=== PATIENT | male | born 1950 | race Caucasian/White ===

== ENCOUNTER 2017-09-29 15:45 | Inpatient (IN) | payer MEDICARE, OTHER ==
[~2017-09-29] VITALS: Ht 182.9 cm; Wt 84.1 kg
[2017-09-29] MEDS ORDERED: IV NORMAL SALINE 500 ML BAG IV ONE (16:00)
[2017-09-29] MEDS ORDERED: ALBUTEROL SULFATE 2.5 MG/3 ML NEBU NEB ONE ×2 (16:00→19:30)
[2017-09-29] MEDS ORDERED: RIVA15TA2 PO (16:08)
[2017-09-29] MEDS ORDERED: LAMO100T PO (16:08)
[2017-09-29] MEDS ORDERED: RISP0.5T20 PO (16:08)
[2017-09-29] MEDS ORDERED: SERTRALINE (16:08)
[2017-09-29] MEDS ORDERED: LORAZEPAM (16:08)
[2017-09-29] MEDS ORDERED: DIVA500T7 PO (16:08)
[2017-09-29] MEDS ORDERED: GENTAMICIN SULFATE 20 MG/2 ML VIAL IV ONE (16:15)
[2017-09-29] MEDS ORDERED: VANCOMYCIN IV 1,000 MG in IV DEXTROSE 5% 250 ML IV ONE (16:15)
[2017-09-29] MEDS ORDERED: ALBUTEROL SULFATE 2.5 MG/3 ML NEBU ONE (16:29)
[2017-09-29 16:46] LABS: BASOPHILS % (AUTO) 0.3 % (0.0-2.0); EOSINOPHILS % (AUTO) 0.2 % (0.0-7.0); HEMATOCRIT 33.4 % (36.7-47.1); LYMPHOCYTES # (AUTO) 0.9 K/uL (20.0-40.0); LYMPHOCYTES % (AUTO) 5.8 % (20.5-51.5); MEAN CORPUSCULAR HEMOGLOBIN 30.2 uug (23.8-33.4); MEAN CORPUSCULAR HGB CONC 33 g/dL (32.5-36.3); MEAN CORPUSCULAR VOLUME 91.5 fL (73.0-96.2); MONOCYTES # (AUTO) 1.1 K/uL (2.0-10.0); MONOCYTES % (AUTO) 7.4 % (0.0-11.0); NEUTROPHILS # (AUTO) 12.7 K/uL (1.8-8.9); NEUTROPHILS % (AUTO) 86.3 % (38.5-71.5); PLATELET COUNT (AUTO) 305 K/uL (152-348); RED BLOOD CELL COUNT(AUTO) 3.66 MIL/uL (4.06-5.63); WHITE BLOOD COUNT (AUTO) 14.7 K/uL (3.6-10.2)
[2017-09-29 16:59] LABS: CREATININE 0.9 mg/dL (0.6-1.3); POTASSIUM 4.9 mmol/L (3.5-5.1)
[2017-09-29] MEDS ORDERED: OLANZAPINE 10 MG VIAL IM ONE ×2 (17:00→17:20)
[2017-09-29 17:05] LABS: BILIRUBIN,DIRECT 0.1 mg/dL (0.0-0.2); BILIRUBIN,TOTAL 0.2 mg/dL (0.2-1.0); TOTAL PROTEIN, SERUM 8.1 g/dL (6.4-8.2)
--- NOTE | 2017-09-29 17:26 | NUR ---
Pt presents to ED via ambulance from [facility] living on a hospice care. Pt presents with a chief complaint of upper and lower bilateral extremities edema. Per hospice staff, pt has not been compliant with care. Noted bilateral lower extremity ulcers. 3+ pitting edema to BLE. pt is tachypneic with shallow breathing. +rhonchi and wheezes audible upon auscultation. Pt is anxious. tolerated meds administered. will continue to monitor.
[2017-09-29] MEDS ORDERED: GENTAMICIN SULFATE INJ 80 MG in IV DEXTROSE 5% 50 ML IV ONE (17:30)
[2017-09-29] MEDS ORDERED: LORAZEPAM 2 MG/1 ML VIAL IV ONE (17:30)
[2017-09-29] MEDS ORDERED: LORAZEPAM 2 MG/1 ML VIAL ONE (17:31)
[2017-09-29 17:32] LABS: BAND % (MANUAL) 2 % (0-10); EOSINOPHILS % (MANUAL) 1 % (0-8); LYMPHOCYTES % (MANUAL) 5 % (20-40); MONOCYTES % (MANUAL) 6 % (2-10); NEUTROPHILS % (MANUAL) 86 % (42-75)
--- NOTE | 2017-09-29 18:32 | NUR ---
Pt is asleep. easily arousable. breathing is labored and even. pt is tachypneic. No wheezes audible. tolerating O2 via NC. Tolerated Gentamicin with no drug reaction. Initiated Vanco. Johnny-fib on registered nurse cardiac telemetry with irregular rate. Pending a bed assignment. will continue to monitor.
--- NOTE | 2017-09-29 19:25 | NUR ---
PATIENT WAS RECEIVED O2 SAT 88% ON 3L NC, HR 136. DR CHERRY AWARE PATIENT PLACE IN [place] POSITION ORAL SUCTION DONE PLACED ON REGULAR MASK 5L. WILL CONTINUE TO MONITOR.
[2017-09-29] MEDS ORDERED: methylPREDNISolone SOD SUCC 125 MG/2 ML VIAL IV ONE (19:30)
[2017-09-29] MEDS ORDERED: IPRATROPIUM BROMIDE 0.5 MG/2.5 ML NEBU NEB ONE (19:30)
[2017-09-29] MEDS ORDERED: AMIODARONE HCL IV 900 MG in IV DEXTROSE 5% 482 ML IV PRN (19:30)
[2017-09-29] MEDS ORDERED: AMIODARONE HCL IV 150 MG in IV DEXTROSE 5% 100 ML IV ONE (19:30)
[2017-09-29] MEDS ORDERED: ALBUTEROL SULFATE 2.5 MG/ 0.5 ML NEBU ONE (19:45)
[2017-09-29] MEDS ORDERED: IPRATROPIUM BROMIDE 0.5 MG/2.5 ML NEBU ONE (19:45)
[2017-09-29] MEDS ORDERED: methylPREDNISolone SOD SUCC 125 MG/2 ML VIAL ONE (19:52)
--- NOTE | 2017-09-29 20:05 | NUR ---
DR BRANDON BRENNAN CALLED PATIENT WILL BE ADMIT TO CCU.
--- NOTE | 2017-09-29 20:27 | NUR ---
CALLED ICU NURSE FOR REPORT WILL CALL BACK
--- NOTE | 2017-09-29 20:35 | NUR ---
Pt. admitted to CCU , under care of Garett Medina Belongs List completed
--- NOTE | 2017-09-29 21:10 | NUR ---
PATIENT TAKEN TO CCU 3 WITHOUT ANY INCIDENT WITH RN SLOTTER OPERATOR HELPER SACHI.
[2017-09-29 21:25] VITALS: BP 125/71
--- NOTE | 2017-09-29 21:30 | NUR ---
ADMITTED PT. ALERT W/ PERIODS OF CONFUSION & DISORIENTATION, AGITATED & UNCOOPERATIVE. ON O2 @ 6L SIMPLE MASK W/ O2 SAT OF 93%. ON AMIODARONE DRIP @ 1MG/HR ON R FA IV SITE. HEP LOCK INTACT & PATENT ON LFA. PT. INCONTINENT OF URINE, CLEANED & KEPT DRY. KEPT HOB ELEVATED.
--- NOTE | 2017-09-29 21:45 | NUR ---
DR. BRENNAN CAME IN & SEEN PT W/ ORDERS. CHANGED O2 TO VENTI MASK 30% FIO2 W/ O2 SAT OF 94%.
[2017-09-29 22:00] VITALS: BP 116/65
[2017-09-29] MEDS ORDERED: ONDANSETRON 4 MG/2 ML VIAL IV PRN (22:00)
[2017-09-29] MEDS: ACETAMINOPHEN 325 MG TABLET PO PRN (22:26)
[2017-09-29 22:30] VITALS: BP 113/61
[2017-09-29] MEDS ORDERED: ACETAMINOPHEN 325 MG TABLET ONE (22:38)
[2017-09-29 22:39] LABS: MAGNESIUM 1.7 mg/dL (1.8-2.4)
[2017-09-29 23:00] VITALS: BP 120/71
[2017-09-29 23:30] VITALS: BP 121/77
[2017-09-30] VITALS (17 sets, daily range): BP systolic 98–132; BP diastolic 47–97
--- NOTE | 2017-09-30 | NUR ---
AFEBRILE. BP STABLE. PT IS AWAKE & CONFUSED.
[2017-09-30] MEDS: ACETAMINOPHEN 325 MG TABLET PO PRN ×3 (02:54→17:11)
[2017-09-30] MEDS ORDERED: ACETAMINOPHEN 325 MG TABLET ONE (03:11)
--- NOTE | 2017-09-30 04:00 | NUR ---
AM CARE DONE. INCONT. OF URINE. REPOSITIONED SELF FOR COMFORTS. KEPT HOB ELEVATED. C-SCOPE AFIB CONTROLLED.
--- NOTE | 2017-09-30 06:00 | NUR ---
CLEANED AGAIN , HAD MOD. SOFT BROWNISH STOOL. REPOSITIONED W/ HOB ELEVATED.
[2017-09-30] MEDS ORDERED: Z GUARD REMEDY PASTE 57 GM TUBE TOP PRN (06:15)
[2017-09-30] MEDS: PANTOPRAZOLE SODIUM 40 MG TABLET.DR PO SCH (08:09)
[2017-09-30] MEDS: DIVALPROEX 500 MG TABLET.DR PO SCH ×2 (08:09→16:00)
[2017-09-30] MEDS: risperiDONE 0.5 MG TABLET PO SCH ×2 (08:17→16:00)
[2017-09-30] MEDS ORDERED: FUROSEMIDE 40 MG/4 ML VIAL IV SCH (09:00)
[2017-09-30] MEDS ORDERED: SULFAMETHE/TRIMETH 20 ML LIQUID UDC PO SCH (09:15)
[2017-09-30] MEDS: SULFAMETH/TRIMETH 800/160 MG TABLET PO SCH ×2 (09:51→20:50)
--- NOTE | 2017-09-30 09:58 | NUR ---
PER DR BRANDON BRENNAN OK TO TO TRANSFER TO [facility], AND OK TO PUT IN ORDER ATIVAN INJ 1MG Q6H PRN
[2017-09-30] MEDS: LAMOTRIGINE 100 MG TABLET PO SCH ×2 (10:41→16:00)
--- NOTE | 2017-09-30 11:45 | NUR ---
DR MAN IS HERE TO ASSESS THE PT, FULL REPORT IS GIVEN. PER DR. MAN OK TO TRANSFER TO TELE. WILL ADVICE DR BRENNAN
[2017-09-30] MEDS: DILTIAZEM HCL CD 120 MG CAP.SR.24H PO SCH (12:24)
[2017-09-30] MEDS: LORAZEPAM 2 MG/1 ML VIAL IV PRN ×2 (13:39→20:51)
--- NOTE | 2017-09-30 16:00 | NUR ---
PT RECEIVED FROM [facility] IN STABLE CONDITION.
[2017-09-30] MEDS: FUROSEMIDE 40 MG/4 ML VIAL IV SCH (16:09)
[2017-09-30] MEDS: RIVAROXABAN 10 MG TABLET PO SCH (17:26)
[2017-09-30] MEDS ORDERED: RIVAROXABAN 15 MG TABLET PO SCH (18:00)
[2017-09-30] MEDS: ALBUTEROL SULFATE 1.25 MG/3 ML NEBU NEB PRN (21:18)
--- NOTE | 2017-09-30 22:00 | NUR ---
nsg: cleansed left great toe wound, applied hydrogel, covered with 4x4 and kerlix. wound care consult ordered.
[2017-10-01 00:28] VITALS: BP 99/63
[2017-10-01] MEDS: ALBUTEROL SULFATE 1.25 MG/3 ML NEBU NEB PRN ×3 (02:21→22:59)
[2017-10-01] MEDS: LORAZEPAM 2 MG/1 ML VIAL IV PRN ×3 (02:23→22:40)
[2017-10-01 04:47] VITALS: BP 98/68
--- NOTE | 2017-10-01 06:45 | NUR ---
nsg: no acute distress noted. all needs attended. tele, afib controlled.
[2017-10-01 06:53] LABS: BASOPHILS % (AUTO) 0.2 % (0.0-2.0); EOSINOPHILS % (AUTO) 0.2 % (0.0-7.0); HEMOGLOBIN 9.9 g/dL (12.5-16.3); LYMPHOCYTES # (AUTO) 0.9 K/uL (20.0-40.0); LYMPHOCYTES % (AUTO) 7.9 % (20.5-51.5); MEAN CORPUSCULAR HEMOGLOBIN 30.5 uug (23.8-33.4); MEAN CORPUSCULAR HGB CONC 34 g/dL (32.5-36.3); MEAN CORPUSCULAR VOLUME 90.8 fL (73.0-96.2); MONOCYTES # (AUTO) 0.8 K/uL (2.0-10.0); MONOCYTES % (AUTO) 6.9 % (0.0-11.0); NEUTROPHILS # (AUTO) 9.3 K/uL (1.8-8.9); NEUTROPHILS % (AUTO) 84.8 % (38.5-71.5); PLATELET COUNT (AUTO) 245 K/uL (152-348); RED BLOOD CELL COUNT(AUTO) 3.26 MIL/uL (4.06-5.63)
[2017-10-01] MEDS: HYDROCODONE/APAP 5-325MG TABLET PO PRN ×2 (06:53→22:39)
[2017-10-01 06:58] LABS: CREATININE 0.7 mg/dL (0.6-1.3); MAGNESIUM 1.8 mg/dL (1.8-2.4); PHOSPHOROUS 3.3 mg/dL (2.5-4.9); POTASSIUM 4.2 mmol/L (3.5-5.1)
[2017-10-01 07:04] LABS: HEMATOCRIT 29.6 % (36.7-47.1); THYROID STIMULATING HORMONE 3.776 mIU/mL (0.358-3.740)
[2017-10-01] MEDS ORDERED: HYDROCODONE/APAP 5-325MG TABLET ONE (07:08)
[2017-10-01] MEDS: FUROSEMIDE 40 MG/4 ML VIAL IV SCH (09:00)
[2017-10-01] MEDS: DIVALPROEX 500 MG TABLET.DR PO SCH ×2 (09:49→18:07)
[2017-10-01] MEDS: SULFAMETH/TRIMETH 800/160 MG TABLET PO SCH ×2 (09:49→21:55)
[2017-10-01] MEDS: LAMOTRIGINE 100 MG TABLET PO SCH ×2 (09:49→18:07)
[2017-10-01] MEDS: DILTIAZEM HCL CD 120 MG CAP.SR.24H PO SCH (09:49)
[2017-10-01] MEDS: risperiDONE 0.5 MG TABLET PO SCH ×2 (09:50→18:07)
[2017-10-01] MEDS: PANTOPRAZOLE SODIUM 40 MG TABLET.DR PO SCH (09:50)
[2017-10-01] MEDS: ACETAMINOPHEN 325 MG TABLET PO PRN (09:56)
[2017-10-01 11:29] VITALS: BP 127/69
[2017-10-01] MEDS ORDERED: SILVER SULFADIAZINE 1% CREAM 25 GM TUBE TP ONE (13:00)
--- NOTE | 2017-10-01 13:02 | NUR ---
WOUND CARE CONSULT: PT REFUSED SKIN ASSESSMENT AND ASKING FOR CIGARETTES. PT NOTED TO HAVE ESCHAR TO RT HAND, NO DRAINAGE OR TENDERNESS NOTED. WOUNDS NOTED WITH REDNESS TO LOWER EXTREMITIES. RECOMMEND DPM CONSULT. ALL SKIN AND WOUND RECOMMENDATIONS DISCUSSED WITH NURSING STAFF. CURRENT RASHAAD SCORE IS 16. WILL SEE PRFrantz CUELLO IN AGREEMENT WITH PLAN OF CARE.
[2017-10-01] MEDS: ACETYLCYSTEINE 10% 4ML VIAL NEB SCH ×3 (14:27→22:59)
[2017-10-01 15:27] VITALS: BP 100/73
[2017-10-01] MEDS ORDERED: FUROSEMIDE 40 MG/4 ML VIAL IV SCH (17:00)
[2017-10-01] MEDS: SILVER SULFADIAZINE 1% CREAM 50 GM TP SCH (18:00)
[2017-10-01] MEDS: FUROSEMIDE 20 MG/2 ML VIAL IV SCH (18:07)
[2017-10-01] MEDS: RIVAROXABAN 10 MG TABLET PO SCH (18:08)
--- NOTE | 2017-10-01 19:54 | NUR ---
RECEIVED SHIFT REPORT FROM DAY SHIFT NURSE. PATIENT IS IN STABLE CONDITION, NO S/S OF DISTRESS. APPEARS TO BE NON-COOPERATIVE. BED IN LOCKED/LOW POSITION, WITH SIDE RAILS UP X2, BED ALARM ON, CALL LIGHT WITHIN REACH OF PATIENT.
[2017-10-01 20:51] VITALS: BP 116/60
[2017-10-02] MEDS: ACETAMINOPHEN 325 MG TABLET PO PRN (00:19)
[2017-10-02 04:00] VITALS: BP 121/59
--- NOTE | 2017-10-02 06:48 | NUR ---
DRESSINGS CHANGED, PATIENT IN STABLE CONDITION, NO S/S OF DISTRESS.
[2017-10-02 06:57] LABS: BASOPHILS % (AUTO) 0.2 % (0.0-2.0); EOSINOPHILS % (AUTO) 0.2 % (0.0-7.0); HEMOGLOBIN 9.7 g/dL (12.5-16.3); LYMPHOCYTES # (AUTO) 1.2 K/uL (20.0-40.0); LYMPHOCYTES % (AUTO) 11.7 % (20.5-51.5); MEAN CORPUSCULAR HEMOGLOBIN 30.6 uug (23.8-33.4); MEAN CORPUSCULAR HGB CONC 34 g/dL (32.5-36.3); MEAN CORPUSCULAR VOLUME 91.1 fL (73.0-96.2); MONOCYTES # (AUTO) 0.9 K/uL (2.0-10.0); MONOCYTES % (AUTO) 8.8 % (0.0-11.0); NEUTROPHILS # (AUTO) 8.2 K/uL (1.8-8.9); NEUTROPHILS % (AUTO) 79.1 % (38.5-71.5); PLATELET COUNT (AUTO) 264 K/uL (152-348); RED BLOOD CELL COUNT(AUTO) 3.19 MIL/uL (4.06-5.63); WHITE BLOOD COUNT (AUTO) 10.3 K/uL (3.6-10.2)
[2017-10-02 07:16] LABS: BILIRUBIN,TOTAL 0.2 mg/dL (0.2-1.0); CREATININE 0.8 mg/dL (0.6-1.3); MAGNESIUM 1.7 mg/dL (1.8-2.4); PHOSPHOROUS 4.1 mg/dL (2.5-4.9); POTASSIUM 4.5 mmol/L (3.5-5.1); TOTAL PROTEIN, SERUM 6.7 g/dL (6.4-8.2)
[2017-10-02] MEDS: ALBUTEROL SULFATE 1.25 MG/3 ML NEBU NEB PRN ×3 (07:36→15:26)
[2017-10-02] MEDS: ACETYLCYSTEINE 10% 4ML VIAL NEB SCH ×2 (07:36→15:26)
[2017-10-02] MEDS: DIVALPROEX 500 MG TABLET.DR PO SCH ×2 (08:06→16:49)
[2017-10-02] MEDS: SULFAMETH/TRIMETH 800/160 MG TABLET PO SCH ×2 (08:06→20:17)
[2017-10-02] MEDS: DILTIAZEM HCL CD 120 MG CAP.SR.24H PO SCH (08:07)
[2017-10-02] MEDS: PANTOPRAZOLE SODIUM 40 MG TABLET.DR PO SCH (08:07)
[2017-10-02] MEDS: risperiDONE 0.5 MG TABLET PO SCH ×2 (08:07→16:49)
[2017-10-02] MEDS: LAMOTRIGINE 100 MG TABLET PO SCH ×2 (08:07→16:49)
[2017-10-02] MEDS: FUROSEMIDE 20 MG/2 ML VIAL IV SCH (08:08)
[2017-10-02] MEDS: SILVER SULFADIAZINE 1% CREAM 50 GM TP SCH (08:09)
[2017-10-02] MEDS: NICOTINE 21 MG/24HR PATCH TD SCH (08:09)
[2017-10-02] MEDS: MAGNESIUM SULFATE/D5W 100 ML IV SCH ×3 (10:21→12:58)
[2017-10-02] MEDS ORDERED: MAGNESIUM SULFATE/D5W 100 ML IV SCH (11:30)
[2017-10-02 11:37] VITALS: BP 96/55
[2017-10-02] MEDS: CLOTRIMAZOLE 1% CREAM 30 GM TUBE TOP SCH ×2 (11:41→16:49)
[2017-10-02] MEDS: CADEXOMER IODINE 40 GM TUBE TOP SCH (11:41)
[2017-10-02 16:01] VITALS: BP 92/47
[2017-10-02] MEDS: FUROSEMIDE 20 MG TABLET PO SCH (16:49)
[2017-10-02] MEDS: RIVAROXABAN 10 MG TABLET PO SCH (17:32)
--- NOTE | 2017-10-02 18:29 | NUR ---
DRESSING CHANGE ON BILATERAL FEET, NO SIGNS OF DISTRESS, COMPLIANT WITH MEDICATION, CALM, COOPERATIVE, AND ALLOWS CARE.
--- NOTE | 2017-10-02 19:45 | NUR ---
RECEIVED SHIFT REPORT FROM DAY SHIFT NURSE. PATIENT RESTING IN BED, NO S/S OF DISTRESS, STABLE CONDITION. CONTINUOUSLY USES CALL LIGHT TO CALL FOR FOOD. UNCOOPERATIVE, AND CONTINUOUSLY YELLING. WILL REORIENT PATIENT. WILL PROVIDE PAIN MANAGEMENT AND WOUND CARE FOR PATIENT. SAFETY/COMFORT WILL PROVIDED. BED IN LOCKED/LOW POSITION, WITH SIDE RAILS UP X2, BED ALARM ON, CALL LIGHT WITHIN REACH.
[2017-10-02 20:00] VITALS: BP 93/49
[2017-10-02] MEDS: HYDROCODONE/APAP 5-325MG TABLET PO PRN (20:17)
[2017-10-02] MEDS: LORAZEPAM 2 MG/1 ML VIAL IV PRN (22:41)
[2017-10-03] MEDS: ALBUTEROL SULFATE 1.25 MG/3 ML NEBU NEB PRN (00:07)
[2017-10-03] MEDS: ACETYLCYSTEINE 10% 4ML VIAL NEB SCH (00:09)
[2017-10-03 06:28] VITALS: BP 122/72
--- NOTE | 2017-10-03 06:39 | NUR ---
PATIENT SLEPT INTERRMITTENTLY THROUGH THE NIGHT. PATIENT WAS VERY UNCOOPERATIVE IN BEGINNING OF SHIFT,CONTINUOUSLY ASKING TO SMOKE A CIGARETTE, ASKING FOR FOOD EVEN WHEN FOOD WAS PROVIDED FOR PATIENT. PATIENT CLEANED, CHANGED, WOUND CARE PROVIDED PER MD ORDERS. PATIENT IN STABLE CONDITION, NO S/S OF DISTRESS, VSS. RESPIRATORY THERAPY PROVIDED BREATHING TREATMENT. BED IN LOCKED/LOW POSITION WITH SIDE RAILS UP X2, BED ALARM ON, CALL LIGHT WITHIN REACH. SAFETY/COMFORT PROVIDED FOR PATIENT THROUGHOUT SHIFT.
[2017-10-03 07:18] LABS: BASOPHILS % (AUTO) 0.3 % (0.0-2.0); EOSINOPHILS % (AUTO) 0.6 % (0.0-7.0); HEMATOCRIT 28.3 % (36.7-47.1); HEMOGLOBIN 9.4 g/dL (12.5-16.3); LYMPHOCYTES # (AUTO) 0.8 K/uL (20.0-40.0); LYMPHOCYTES % (AUTO) 10.9 % (20.5-51.5); MEAN CORPUSCULAR HEMOGLOBIN 30.3 uug (23.8-33.4); MEAN CORPUSCULAR HGB CONC 33 g/dL (32.5-36.3); MEAN CORPUSCULAR VOLUME 91.4 fL (73.0-96.2); MONOCYTES # (AUTO) 0.7 K/uL (2.0-10.0); MONOCYTES % (AUTO) 8.5 % (0.0-11.0); NEUTROPHILS # (AUTO) 6.2 K/uL (1.8-8.9); NEUTROPHILS % (AUTO) 79.7 % (38.5-71.5); PLATELET COUNT (AUTO) 257 K/uL (152-348); RED BLOOD CELL COUNT(AUTO) 3.09 MIL/uL (4.06-5.63)
[2017-10-03 07:30] LABS: CREATININE 0.8 mg/dL (0.6-1.3); PHOSPHOROUS 3.5 mg/dL (2.5-4.9)
[2017-10-03 07:30] LABS: WHITE BLOOD COUNT (AUTO) 7.7 K/uL (3.6-10.2)
[2017-10-03] MEDS: FUROSEMIDE 20 MG TABLET PO SCH (08:27)
[2017-10-03] MEDS: LAMOTRIGINE 100 MG TABLET PO SCH (08:27)
[2017-10-03] MEDS: risperiDONE 0.5 MG TABLET PO SCH (08:27)
[2017-10-03] MEDS: SULFAMETH/TRIMETH 800/160 MG TABLET PO SCH (08:27)
[2017-10-03] MEDS: DILTIAZEM HCL CD 120 MG CAP.SR.24H PO SCH (08:29)
[2017-10-03] MEDS: DIVALPROEX 500 MG TABLET.DR PO SCH (08:30)
[2017-10-03] MEDS: PANTOPRAZOLE SODIUM 40 MG TABLET.DR PO SCH (08:30)
[2017-10-03] MEDS: CLOTRIMAZOLE 1% CREAM 30 GM TUBE TOP SCH (08:32)
[2017-10-03] MEDS: SILVER SULFADIAZINE 1% CREAM 50 GM TP SCH (08:32)
[2017-10-03] MEDS: LORAZEPAM 2 MG/1 ML VIAL IV PRN (08:35)
--- NOTE | 2017-10-03 08:35 | NUR ---
PT IS UNCOOPERATIVE DURING BEGINNING OF SHIFT, SCREAMING AT STAFF, DEMANDING, HYPERVERBAL, AGITATED, RESTLESS, PT STATES, " I AM AN EMOTIONAL GUYS, I KNOW IT, I CAN'T CONTROL MYSELF". PT VERBALIZES ANXIETY "09/26!" PT OFFERED ATIVAN. PT AGREES TO TAKE ATIVAN.
[2017-10-03] MEDS: NICOTINE 21 MG/24HR PATCH TD SCH (08:51)
[2017-10-03] MEDS: CADEXOMER IODINE 40 GM TUBE TOP SCH (08:51)
--- NOTE | 2017-10-03 09:44 | NUR ---
PT IS CALM, RESTING NO SIGNS OF RESPIRATORY DISTRESS, ATIVAN WAS EFFECTIVE.
[2017-10-03] MEDS ORDERED: FLUCONAZOLE 100 MG TABLET PO SCH (10:25)
[2017-10-03] MEDS ORDERED: SODIUM HYPOCHLORITE 0.125% 473 ML BOTTLE TP SCH (10:30)
[2017-10-03 11:05] VITALS: BP 127/68
[2017-10-03] MEDS ORDERED: SULF1TAB3 PO (11:40)
[2017-10-03] MEDS ORDERED: FLUC100T PO (11:40)
[2017-10-03] MEDS ORDERED: ALBU1.25 NEB (11:40)
[2017-10-03] MEDS ORDERED: Silver Sulfadiazine 1% Cream TP (11:40)
[2017-10-03] MEDS ORDERED: CADE40GE2 TOP (11:40)
[2017-10-03] MEDS ORDERED: DILT120C62 PO (11:40)
[2017-10-03] MEDS ORDERED: PANT40TA2 PO (11:40)
[2017-10-03] MEDS ORDERED: FURO20TA4 PO (11:40)
--- NOTE | 2017-10-03 15:00 | NUR ---
PT IS AOX1, RESTLESS AND UPSET TO LEAVE ON A GURNEY.PT DISCHARGE TO [facility], REPORT WAS GIVEN TO KEMAL. PT D/C WITH ALL BELONGINGS, VALUABLES, AND EXIT CARE PACKET. PT IS ON 2L O2 AND WILL TRANSPORT W/ O2. PT IS STABLE FOR TRANSPORT, VITALS STABLE. IV REMOVED, ARMBAND REMOVED.
[2017-10-03 15:45] VITALS: BP 127/68
== END 2017-10-03 15:00 | DRG 291 ==
LOC: ER 15:46 → TELE-TD 20:53 → CCU 22:17 → MED 09-30 13:03 → TELE 09-30 13:06 → MED 10-01 12:11
PROVIDERS: ADMIT Internal Medicine; ATTEND Internal Medicine
DX: I11.0 Hypertensive heart disease with heart failure (principal); J96.21 Acute and chronic respiratory failure with hypoxia; G93.41 Metabolic encephalopathy; E44.0 Moderate protein-calorie malnutrition; E22.2 Syndrome of inappropriate secretion of antidiuretic hormone; R53.2 Functional quadriplegia; I48.2 Chronic atrial fibrillation; D68.59 Other primary thrombophilia; L03.115 Cellulitis of right lower limb; L03.116 Cellulitis of left lower limb; I87.311 Chronic venous hypertension (idiopathic) with ulcer of right lower extremity; L97.319 Non-pressure chronic ulcer of right ankle with unspecified severity; L97.909 Non-pressure chronic ulcer of unspecified part of unspecified lower leg with unspecified severity; F23 Brief psychotic disorder; I50.33 Acute on chronic diastolic (congestive) heart failure; L97.529 Non-pressure chronic ulcer of other part of left foot with unspecified severity; B35.1 Tinea unguium; J44.9 Chronic obstructive pulmonary disease, unspecified; I87.2 Venous insufficiency (chronic) (peripheral); Z79.01 Long term (current) use of anticoagulants; Z72.0 Tobacco use; Z79.899 Other long term (current) drug therapy; Z68.25 Body mass index [BMI] 25.0-25.9, adult; D63.8 Anemia in other chronic diseases classified elsewhere; F03.90 Unspecified dementia, unspecified severity, without behavioral disturbance, psychotic disturbance, mood disturbance, and anxiety
CPT/HCPCS: 36415; 70030-TC; 71010; 83550; 83605; 83735; 84100; 84443; 85025; 85730; 87040; 87070; 87077; 93005; 93307; 94640; A4217; A4663; J0282; J1580; J1940; J2060; J2358; J2930; J3370; J3475; J3590; J7040; J7060